=== PATIENT | female | born 1975 | race Caucasian/White ===

== ENCOUNTER → 2017-02-10 | Day surgery (SDC) | payer OTHER ==
[2017-02-10 09:53] LABS: HCT 41.3 % (37.0-47.0); HGB 13.8 g/dl (12.5-16.0); MCH 31.4 pg (25.0-31.0); MCHC 33.4 g/dL (32.0-36.0); MCV 94.1 fL (78.0-100.0); MPV 9.4 fL (6.0-9.5); RBC 4.39 M/uL (4.20-5.40); RDW 12.3 % (11.5-14.0); WBC 6.8 K/uL (4.0-10.5)
[2017-02-10 10:33] LABS: ALBUMIN 4.4 g/dL (3.5-5.0); BILIRUBIN - TOTAL 0.3 mg/dL (0.1-1.0); CREATININE 0.8 mg/dL (0.5-1.0); GLOBULIN (CALCULATION) 3.2 g/dL (2.2-4.2); POTASSIUM 3.9 mmol/L (3.5-5.1); TOTAL PROTEIN 7.6 g/dL (6.4-8.3)
== END | disposition home or self-care (01) ==
LOC: FAS 09:25
PROVIDERS: Surgery
DX: N60.01 Solitary cyst of right breast (principal); N60.19 Diffuse cystic mastopathy of unspecified breast; Z79.899 Other long term (current) drug therapy; Z98.890 Other specified postprocedural states; Z87.891 Personal history of nicotine dependence
CPT/HCPCS: 36415; 80053; 84703; 88304; J1100; J1885; J2270; J2704; J2765